=== PATIENT | female | born 2000 | race Caucasian/White ===

== ENCOUNTER 2024-06-29 10:03 | Inpatient (IN) | payer BC ==
[2024-06-29] MEDS ORDERED: Sodium Chloride 0.9% 20 ML SDV IV PRN (10:47)
[2024-06-29] MEDS ORDERED: Lidocaine 1% 50 ML MDV INJECT PRN (10:47)
[2024-06-29] MEDS ORDERED: Sodium Chloride 0.9% 10 ML Syringe FLUSH PRN (10:47)
[2024-06-29] MEDS ORDERED: Water For Irrigation,Sterile 1,000 ML Container IRR PRN (10:47)
[2024-06-29] MEDS ORDERED: Sodium Chloride 0.9% 2.5 ML Syringe FLUSH PRN (10:47)
[2024-06-29] MEDS ORDERED: Misoprostol 200 MCG Tab PO PRN (10:47)
[2024-06-29] MEDS ORDERED: Methylergonovine 0.2 MG/1 ML Amp IM PRN (10:47)
[2024-06-29] MEDS ORDERED: Carboprost Tromethamine 250 MCG/1 mL Vial IM PRN (10:47)
[2024-06-29] MEDS ORDERED: Butorphanol 2 MG/ML SDV IVPUSH PRN (10:47)
[2024-06-29] MEDS ORDERED: Ondansetron 4 MG/2 ML SDV IVPUSH PRN (10:47)
[2024-06-29] MEDS ORDERED: Oxytocin/0.9 % Sodium Chloride 30 UNIT/500 ML BAG IV SCH (11:00)
[2024-06-29 11:43] LABS: HEMOGLOBIN 10.6 g/dL (12.0-16.0); MEAN CORPUSCULAR HEMOGLOBIN 24.8 pg (28.0-32.0); MEAN CORPUSCULAR HGB CONC 31.2 g/dL (32.0-36.0); MEAN CORPUSCULAR VOLUME 79.6 fL (83.0-99.0); PLATELET COUNT,PLT 192 K/uL (150-400); RED BLOOD CELL COUNT 4.27 M/uL (4.10-5.30); WHITE BLOOD CELL COUNT,WBC 12.45 K/uL (3.9-11.3)
[2024-06-29 12:15] LABS: A/G RATIO 0.6 (0.9-1.6); ALANINE AMINOTRANSFERASE,ALT 14 IU/L (14-63); ALBUMIN 2.4 g/dL (3.4-5.0); ALKALINE PHOSPHATASE 142 U/L (46-116); ASPARTATE AMNIOTRANSFERASE,AST 11 IU/L (15-37); BILIRUBIN TOTAL 0.3 mg/dL (0.2-1.0); BLOOD UREA NITROGEN,BUN 10 mg/dL (7.0-18.0); CALCIUM 9.1 mg/dL (8.5-10.1); CARBON DIOXIDE,CO2 22.2 mmol/L (21.0-32.0); CHLORIDE,CL 104 mmol/L (98-107); CREATININE 0.8 mg/dL (0.6-1.0); ESTIMATED GFR 107 mL/min (>60); GLUCOSE RANDOM 96 mg/dL (74-106); POTASSIUM,K 4.4 mmol/L (3.5-5.1); PROTEIN TOTAL,TP 6.3 g/dL (6.4-8.2); SODIUM,NA 136 mmol/L (136-145)
[2024-06-29] MEDS ORDERED: Terbutaline 1 MG/ML SDV SUBCUT PRN (12:39)
[2024-06-29 12:59] LABS: APPEARANCE,URINE SLT CLOUDY; BILIRUBIN,URINE NEGATIVE (NEGATIVE); COLOR,URINE YELLOW; GLUCOSE,URINE NEGATIVE (NEGATIVE); KETONES,URINE NEGATIVE (NEGATIVE); LEUKOCYTE ESTERASE,URINE LARGE (NEGATIVE); NITRITE,URINE NEGATIVE (NEGATIVE); OCCULT BLOOD,URINE NEGATIVE (NEGATIVE); PROTEIN,URINE NEGATIVE (NEGATIVE); UROBILINOGEN,URINE 0.2 EU/dL (<2.0)
[2024-06-29] MEDS: Ampicillin 2 GM in Sodium Chloride 0.9% 100 ML IV ONE (12:59)
[2024-06-29] MEDS: Lactated Ringers 1,000 ML IV SCH (12:59)
[2024-06-29] MEDS: Misoprostol 25 MCG (1/4 of 100 MCG) Tab PO ONE (13:00)
[2024-06-29] MEDS: Misoprostol 25 MCG (1/4 of 100 MCG) Tab VAG PRN (13:01)
[2024-06-29 13:18] LABS: CREATININE,URINE RAND 33.7 mg/dL; PROTEIN CREATININE RATIO,URINE 0.2
[2024-06-29] MEDS: Ampicillin 1 GM in Sodium Chloride 0.9% 50 ML IV SCH (17:01)
[2024-06-30] MEDS ORDERED: Bupivacaine 0.5% 10 ML SDV ONE (00:25)
[2024-06-30] MEDS ORDERED: Ropivacaine HCl/PF 200 ML ONE (00:25)
[2024-06-30] MEDS ORDERED: Phenylephrine HCl In 0.9% NaCl 1 MG/10 ML Syringe ONE (00:26)
[2024-06-30] MEDS ORDERED: ePHEDrine 50 MG/ML SDV IM PRN (00:56)
[2024-06-30] MEDS ORDERED: Bupivacaine 0.5% 10 ML SDV INJECT ONE (00:56)
[2024-06-30] MEDS ORDERED: Phenylephrine HCl In 0.9% NaCl 1 MG/10 ML Syringe IVPUSH PRN (00:56)
[2024-06-30] MEDS ORDERED: ePHEDrine 50 MG/ML SDV IVPUSH PRN (00:56)
[2024-06-30] MEDS ORDERED: dexmedeTOMIDine HCl 200 MCG/2 ML SDV EPIDUR SCH (01:00)
[2024-06-30] MEDS: Ropivacaine HCl/PF 400 MG in Premix Bag 1 BAG EPIDUR SCH (01:04)
[2024-06-30] MEDS: Oxytocin/0.9 % Sodium Chloride 30 UNIT/500 ML BAG IV SCH (05:08)
[2024-06-30] MEDS ORDERED: Benzocaine/Menthol 20%-0.5% Spray 78 GM Cannister TOP PRN (08:01)
[2024-06-30] MEDS ORDERED: Aluminum Hydroxide/Magnesium Hydroxide/Simethicone Susp 30 ML Cup PO PRN (08:01)
[2024-06-30] MEDS ORDERED: Lanolin 100% Cream 7 GM Tube TOP PRN (08:01)
[2024-06-30] MEDS ORDERED: Docusate Sodium 100 MG Cap PO PRN (08:01)
[2024-06-30] MEDS ORDERED: Simethicone 80 MG Tab.Chew PO PRN (08:01)
[2024-06-30 08:16] LABS: PH,UMBILICAL ARTERIAL 7.29 (7.18-7.38); PH,UMBILICAL VENOUS 7.35 (7.25-7.45)
[2024-06-30] MEDS: Witch Hazel Medicated Pads 40/Jar TOP PRN (10:49)
[2024-06-30] MEDS: Acetaminophen 500 MG Tab PO PRN (14:42)
[2024-06-30] MEDS: Ibuprofen 800 MG Tab PO PRN (20:29)
[2024-07-01 06:12] LABS: BASOPHILS ABSOLUTE AUTO 0.06 K/uL (0.00-0.20); BASOPHILS PERCENT AUTO 0.4 % (0.0-1.0); EOSINOPHILS ABSOLUTE AUTO 0.17 K/uL (0.00-0.45); EOSINOPHILS PERCENT AUTO 1.1 % (0.0-6.0); HEMATOCRIT 32.2 % (37.0-47.0); HEMOGLOBIN 9.8 g/dL (12.0-16.0); IMMATURE GRAN ABSOLUTE AUTO 0.11 K/uL (0.00-0.05); IMMATURE GRAN PERCENT AUTO 0.7 % (0.0-0.4); LYMPHOCYTES ABSOLUTE AUTO 3.44 K/uL (1.00-4.80); LYMPHOCYTES PERCENT AUTO 22.8 % (24.0-44.0); MEAN CORPUSCULAR HEMOGLOBIN 23.9 pg (28.0-32.0); MEAN CORPUSCULAR HGB CONC 30.4 g/dL (32.0-36.0); MEAN CORPUSCULAR VOLUME 78.5 fL (83.0-99.0); MEAN PLATELET VOLUME 10.8 fL (9.4-12.3); MONOCYTES ABSOLUTE AUTO 1.31 K/uL (0.00-0.80); MONOCYTES PERCENT AUTO 8.7 % (0.0-8.0); NEUTROPHILS PERCENT AUTO 66.3 % (41.0-71.0); PLATELET COUNT,PLT 158 K/uL (150-400); WHITE BLOOD CELL COUNT,WBC 15.09 K/uL (3.9-11.3)
== END 2024-07-01 16:15 | disposition home or self-care (01) | DRG 560 ==
LOC: MW.OBCHECK 10:03 → MW.OB 10:04 → MW.OBCHECK 10:47 → OBSVTOIN 06-30 08:07 → MW.OB 06-30 12:53
PROVIDERS: ADMIT Obstetrics & Gynecology Obstetrics; ATTEND Obstetrics & Gynecology
PROC: 10E0XZZ Delivery of Products of Conception, External Approach (ICD-10-PCS; principal; 2024-06-30)
PROC: 3E0R3BZ Introduction of Anesthetic Agent into Spinal Canal, Percutaneous Approach (ICD-10-PCS; 2024-06-30)
PROC: 4A033R1 Measurement of Arterial Saturation, Peripheral, Percutaneous Approach (ICD-10-PCS; 2024-06-30)
DX: O48.0 Post-term pregnancy (principal); O99.824 Streptococcus B carrier state complicating childbirth; O13.4 Gestational [pregnancy-induced] hypertension without significant proteinuria, complicating childbirth; Z3A.40 40 weeks gestation of pregnancy; Z37.0 Single live birth; O99.02 Anemia complicating childbirth; O41.03X0 Oligohydramnios, third trimester, not applicable or unspecified; E55.9 Vitamin D deficiency, unspecified; Z79.899 Other long term (current) drug therapy
CPT/HCPCS: 36415; 51702; 59025; 59409; 76815; 76815-26; 80053; 81003; 82570; 82803; 84156; 84550; 85025; 85027; 86592; 86850; 86900; 86901; A9270-GY; J0290; J0665; J2371; J2590; J2795; J7120